=== PATIENT | female | born 1980 | race Caucasian/White ===

== ENCOUNTER 2020-08-21 09:05 | Emergency (ER) | payer OTHER ==
[2020-08-21 09:16] VITALS: TEMP 98; BMI 27.4
[2020-08-21] MEDS ORDERED: LIDOCAINE 5% TOPICAL PATCH TP ONE (09:42)
[2020-08-21] MEDS ORDERED: LIDOCAINE 5% TOPICAL PATCH ONE (09:44)
[2020-08-21] MEDS ORDERED: KETOROLAC TROMETHAMINE 60 MG/2 ML VIAL IM ONE (10:55)
[2020-08-21] MEDS ORDERED: METHOCARBAMOL 500 MG TABLET PO ONE (10:55)
[2020-08-21] MEDS ORDERED: KETOROLAC TROMETHAMINE 60 MG/2 ML VIAL ONE (10:55)
[2020-08-21] MEDS ORDERED: METHOCARBAMOL 500 MG TABLET ONE (10:56)
[2020-08-21 11:21] LABS: HCG,QUALITATIVE URINE Negative
[2020-08-21 11:24] LABS: EPITHELIAL CELLS FEW /hpf
[2020-08-21 12:31] VITALS: BP 98/56; PULSE 75
[2020-08-21] MEDS ORDERED: LIDOCAINE PATCH REMOVAL MC SCH (22:00)
== END 2020-08-21 13:40 | disposition home or self-care (01) ==
LOC: FER 09:05
PROC: 3E0233Z Introduction of Anti-inflammatory into Muscle, Percutaneous Approach (ICD-10-PCS; principal; 2020-08-21)
DX: M51.36 Other intervertebral disc degeneration, lumbar region (principal); M51.26 Other intervertebral disc displacement, lumbar region
CPT/HCPCS: 72131-TC; 81003; 81015; 84703; 99284-25

== ENCOUNTER 2021-05-03 08:51 | Emergency (ER) | payer OTHER ==
[2021-05-03 09:08] VITALS: BP 106/72; PULSE 75; TEMP 98.9; BMI 27.4
[2021-05-03] MEDS ORDERED: ACETAMINOPHEN 500 MG TABLET (FP) PO ONE (09:11)
[2021-05-03] MEDS ORDERED: ACETAMINOPHEN 500 MG TABLET (FP) ONE (09:19)
== END 2021-05-03 09:37 | disposition home or self-care (01) ==
LOC: FER 08:51
DX: S09.90XA Unspecified injury of head, initial encounter (principal); S00.83XA Contusion of other part of head, initial encounter; W10.9XXA Fall (on) (from) unspecified stairs and steps, initial encounter; Y92.89 Other specified places as the place of occurrence of the external cause
CPT/HCPCS: 70450-TC; 81025; 99284-25